=== PATIENT | male | born 1960 | race Caucasian/White ===

== ENCOUNTER → 2017-11-25 | Day surgery (SDC) | payer MEDICAID, OTHER ==
[~2017-11-25] MED LIST: Propofol 200 MG/20 ML SDV IV ONE
[2017-11-25] MEDS: Lactated Ringers 1,000 ML IV SCH (09:37)
--- NOTE | 2017-11-28 08:15 | OR ---
DATE OF OPERATION: 11/25/2017 PREOPERATIVE DIAGNOSIS: FAMILY HISTORY OF COLON CARCINOMA. POSTOPERATIVE DIAGNOSIS: FAMILY HISTORY OF COLON CARCINOMA. SURGEON: Eben Vides MD PROCEDURE: FULL-LENGTH COLONOSCOPY WITH FORCEPS POLYP REMOVAL X2. 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 COMPLICATIONS: None. SPECIMEN: Two small tubular adenomas, ascending colon. RECOMMENDATIONS: Followup colonoscopy in 5 years. INDICATIONS: The patient has a family history of colon CA. He is due for a 5- year colonoscopy. DESCRIPTION OF PROCEDURE: The patient was prepped and draped, placed in the left lateral decubitus position. A lubricated Olympus colonoscope was inserted and easily advanced to the cecum. Direct visualization of the ileocecal valve and appendiceal orifice was accomplished. Bowel prep was excellent. Upon withdrawal of the scope, the cecum and the proximal ascending colon appeared benign. In the mid ascending colon, the patient had 2 small tubular adenomas, possibly hyperplastic polyps, both well less than 0.5 cm in size. They were difficult positioning get to with the snare. After multiple attempts, we elected to remove them with forceps. Two cold forceps biopsies of each polyp removed them in their entirety and resolution of bleeding was spontaneous. The rest of the ascending and transverse colon were benign. The patient has scattered diverticular disease throughout the entire left colon including the descending colon moderate in severity. There were no signs of any obvious inflammatory change associated with this. The left colon had no signs of any polyps, mass, ulceration, bleeding sites, or vascular abnormality. The rectal vault was benign. Retroflexion scope in the rectum showed no anal lesions. Air was suctioned. Scope removed without complication. BRUCE/EDGAR /[id number]
== END ==
LOC: CC.SDS 09:16
PROVIDERS: ATTEND Family Medicine
DX: Z12.11 Encounter for screening for malignant neoplasm of colon (principal); D12.2 Benign neoplasm of ascending colon; F17.210 Nicotine dependence, cigarettes, uncomplicated; N40.0 Benign prostatic hyperplasia without lower urinary tract symptoms; K21.9 Gastro-esophageal reflux disease without esophagitis; Z80.0 Family history of malignant neoplasm of digestive organs; Z79.82 Long term (current) use of aspirin; Z79.899 Other long term (current) drug therapy
CPT/HCPCS: 45380; J2704; J7120

== ENCOUNTER 2023-11-11 10:34 | Day surgery (SDC) | payer MEDICARE ==
[~2023-11-11 10:34] MED LIST changes: +Flumazenil 0.1 MG/ML 10 ML MDV ONE; +Ketamine 200 MG/20 ML MDV ONE; +Midazolam 1 MG/ML 2 ML SDV ONE; -Propofol 200 MG/20 ML SDV IV ONE; +Propofol 200 MG/20 ML SDV ONE; +fentaNYL 50 MCG/ML SDV ONE
[2023-11-11] MEDS: Lactated Ringers 1,000 ML IV SCH (10:49)
== END 2023-11-11 12:10 | disposition home or self-care (01) ==
LOC: CC.SDS 10:34
PROVIDERS: ATTEND Family Medicine
DX: Z12.11 Encounter for screening for malignant neoplasm of colon (principal); K57.30 Diverticulosis of large intestine without perforation or abscess without bleeding; K63.5 Polyp of colon; K21.9 Gastro-esophageal reflux disease without esophagitis; N40.0 Benign prostatic hyperplasia without lower urinary tract symptoms; F17.200 Nicotine dependence, unspecified, uncomplicated; Z79.899 Other long term (current) drug therapy; Z80.0 Family history of malignant neoplasm of digestive organs; Z83.719 Family history of colon polyps, unspecified
CPT/HCPCS: 00811; 88305; J2250; J2704; J3010; J3490; J7120